=== PATIENT | female | born 1985 | race Caucasian/White ===

== ENCOUNTER 2017-07-28 15:08 | Emergency (ER) | payer OTHER ==
[2017-07-28 15:28] VITALS: BP 115/59; PULSE 79; BMI 21.4
--- NOTE | 2017-07-28 16:30 | PDOC ---
History of Present Illness - History of Present Illness Initial Comments: 07/28/17 16:59 The patient is a year old female, with no significant past medical history who presents to the emergency department with right eye pain s/p hitting the eye with the corner of a box. She states she was pulling a box out because she is moving today and she hit the inferior lid of her right eye with the corner of the box. She reports the light exacerbates her eye pain. She states she can barely open the eye because of pain. She reports taking 2 Advil for the pain with little to no alleviation. She denies chest pain, shortness of breath, headache and dizziness. She denies fever, chills, nausea, vomit, diarrhea and constipation. She denies dysuria, frequency, urgency and hematuria. Allergies: NKDA Surgical Hx: <Kathy Mendez - Last Filed: 07/28/17 17:07> <Cande Mcnally - Last Filed: 07/28/17 17:10> - General Chief Complaint: Eye Problem Stated Complaint: RT EYE PAIN Time Seen by Provider: 07/28/17 16:06 Past History <Kathy Mendez - Last Filed: 07/28/17 17:07> - Past Medical History Other medical history: DENIES - Immunization History Immunization Up to Date: No - Psycho/Social/Smoking Cessation Hx Anxiety: No Suicidal Ideation: No Smoking History: Never smoked Have you smoked in the past 12 months: No Information on smoking cessation initiated: No Hx Alcohol Use: No Drug/Substance Use Hx: No Substance Use Type: None <Cande Mcnally - Last Filed: 07/28/17 17:10> - Past Medical History Home Medications: Ambulatory Orders Gentamicin 0.3% Eye Ointment - 1 applic TP QID #1 tube 07/28/17 Review of Systems - Review of Systems Able to Perform ROS?: Yes Comments:: 07/28/17 16:59 CONSTITUTIONAL: Absent: fever, no chills, no fatigue EYES: (+) right eye pain and blurriness ENT: Absent: ear pain, no sore throat CARDIOVASCULAR: Absent: chest pain, no palpitations RESPIRATORY: Absent: cough, no SOB GI: Absent: abdominal pain, no nausea, no vomiting, no constipation, no diarrhea GENITOURINARY: Absent: dysuria, no frequency, no hematuria MUSCULOSKELETAL: Absent: back pain, no arthralgia, no myalgia SKIN: Absent: rash NEURO: Absent: headache <aKthy Mendez - Last Filed: 07/28/17 17:07> *Physical Exam - Vital Signs Last Vital Signs Temp Pulse Resp BP Pulse Ox 79 20 115/59 99 07/28/17 15:09 07/28/17 15:09 07/28/17 15:09 07/28/17 15:09 - Physical Exam Comments: 07/28/17 17:00 GENERAL: Well-appearing, well-nourished. No apparent distress. HENT: Normocephalic, atraumatic. PERRL, EOM intact. EYES: (+) positive fluoroscein uptake at the 6 'o clock position. CARDIOVASCULAR: Normal S1, S2. Regular rate and rhythm. PULMONARY: Clear to auscultation bilaterally. ABDOMEN: Soft, non-distended, non-tender. EXTREMITIES: Normal ROM in all four extremities. No gross deformities. SKIN: Warm, dry. No rash NEUROLOGICAL: No focal neurological deficits. <Kathy Mendez - Last Filed: 07/28/17 17:07> - Vital Signs Last Vital Signs Temp Pulse Resp BP Pulse Ox 79 20 115/59 99 07/28/17 15:09 07/28/17 15:09 07/28/17 15:09 07/28/17 15:09 <Cande Mcnally - Last Filed: 07/28/17 17:10> *DC/Admit/Observation/Transfer - Attestations Scribe Attestion: 07/28/17 17:01 Documentation prepared by Kathy Mendez, acting as medical support specialist for Cande Mcnally MD <Kathy Mendez - Last Filed: 07/28/17 17:07> - Discharge Dispostion Admit: No <Cande Mcnally - Last Filed: 07/28/17 17:10> Diagnosis at time of Disposition: Abrasion of right cornea - Discharge Dispostion Disposition: HOME Condition at time of disposition: Stable - Prescriptions Prescriptions: Gentamicin 0.3% Eye Ointment - 1 applic TP QID #1 tube - Referrals Referrals: Vern Rick MD [Non Staff, Medical] - William Rick MD [Non Staff, Medical] - Maciel Kaufman MD [Staff Physician] - - Patient Instructions Printed Discharge Instructions: DI for Corneal Abrasion
[2017-07-28] MEDS ORDERED: GENTAMICIN SULFATE 0.3% OPHTHALMIC (EYE DROPS) 5ML BOTTLE ONE (17:06)
[2017-07-28] MEDS ORDERED: GENTAMICIN SULFATE 0.3% OPHTHALMIC (EYE DROPS) 5ML BOTTLE OD ONE (17:14)
== END 2017-07-28 17:33 | disposition home or self-care (01) ==
LOC: FER 15:08
DX: S05.01XA Injury of conjunctiva and corneal abrasion without foreign body, right eye, initial encounter (principal); W22.01XA Walked into wall, initial encounter; Y93.89 Activity, other specified; Y92.009 Unspecified place in unspecified non-institutional (private) residence as the place of occurrence of the external cause
CPT/HCPCS: 99282-25